=== PATIENT | male | born 1930 | race African-American/Black ===

== ENCOUNTER 2017-08-15 08:21 | Emergency (ER) | payer MEDICARE, BC, OTHER ==
[~2017-08-15] VITALS: Ht 177.8 cm; Wt 90.0 kg
[~2017-08-15 08:21] MED LIST: CETI10TA6 PO; DOCU-138 PO; HYDR-1348 PO; HYDR-3927 PO; OMEP20CA10 PO; OXYB5TAB11 PO; TAMS0.4C31 PO; TRAM50TA3 PO; [UNRECOGNIZED DRUG - CODE] PO
[2017-08-15] MEDS ORDERED: ONDANSETRON HCL 4MG/2ML VIAL IV STA (08:45)
[2017-08-15] MEDS ORDERED: MORPHINE SULFATE 4 MG/ML CPJ (NOT FOR IM USE) IV STA (08:45)
[2017-08-15 09:07] LABS: BASOPHILS % 0.9 % (0.0-2.0); EOSINOPHILS % 3.9 % (0.0-5.0); HEMOGLOBIN. 12.6 g/dL (14.0-18.0); LYMPHOCYTES % 28.9 % (20.0-50.0); MEAN CORPUSCULAR HEMOGLOBIN 33.8 pg (28.0-32.0); MEAN CORPUSCULAR VOLUME 99.8 fL (80.0-94.0); MEAN PLATELET VOLUME 7.1 fl (7.4-10.4); MONOCYTES % 14.4 % (2.0-8.0); NEUTROPHILS % 51.9 % (40.0-76.0); PLATELET 138 x1000/uL (130-400); RED BLOOD CELL COUNT 3.71 mill/uL (4.7-6.1); RED CELL DISTRIBUTION WIDTH 14.7 % (11.6-14.6)
[2017-08-15 09:11] LABS: CHLORIDE 108 mEq/L (98-107)
[2017-08-15 09:13] LABS: INR 1.1; PROTHROMBIN TIME 11.4 sec (9.4-11.6)
[2017-08-15] MEDS ORDERED: IOHEXOL-300 100 ML BOTTLE ONE (10:18)
[2017-08-15] MEDS ORDERED: TRAMADOL 50MG TABLET PO ONE (10:30)
[2017-08-15 10:47] VITALS: BP 126/80
== END 2017-08-15 10:53 | disposition home or self-care (01) ==
LOC: ER 08:44
DX: S22.31XA Fracture of one rib, right side, initial encounter for closed fracture (principal); D72.819 Decreased white blood cell count, unspecified; R05 Cough; I48.91 Unspecified atrial fibrillation; I10 Essential (primary) hypertension; Z86.718 Personal history of other venous thrombosis and embolism; Z96.659 Presence of unspecified artificial knee joint; Z95.0 Presence of cardiac pacemaker; Z88.8 Allergy status to other drugs, medicaments and biological substances; W01.0XXA Fall on same level from slipping, tripping and stumbling without subsequent striking against object, initial encounter; Y93.89 Activity, other specified; Y92.89 Other specified places as the place of occurrence of the external cause; Y99.8 Other external cause status
CPT/HCPCS: 36415; 71260; 74177; 80053; 85025; 85610; 96374; 96375; 99285; J2270; J2405; Q9967

== ENCOUNTER 2018-08-25 19:15 | Inpatient (IN) | payer BC, OTHER ==
[~2018-08-25] VITALS: Ht 182.9 cm; Wt 99.8 kg
[2018-08-25 20:17] LABS: BASOPHILS % 1.2 % (0.0-2.0); EOSINOPHILS % 3.4 % (0.0-5.0); HEMATOCRIT. 43.2 % (42.0-52.0); HEMOGLOBIN. 14.3 g/dL (14.0-18.0); LYMPHOCYTES % 34.7 % (20.0-50.0); MEAN CORPUSCULAR VOLUME 102.4 fL (80.0-94.0); MEAN PLATELET VOLUME 7.8 fl (7.4-10.4); MONOCYTES % 9.7 % (2.0-8.0); PLATELET 194 x1000/uL (130-400); RED BLOOD CELL COUNT 4.22 mill/uL (4.7-6.1); RED CELL DISTRIBUTION WIDTH 14.9 % (11.6-14.6)
[2018-08-25 20:21] LABS: INR 1.1; PARTIAL THROMBOPLASTIN TIME 28.2 sec (23.4-31.0); PROTHROMBIN TIME 11.4 sec (9.6-11.0)
[2018-08-25 20:23] LABS: CHLORIDE 109 mEq/L (98-107)
[2018-08-25] MEDS ORDERED: ACETAMINOPHEN 325MG TABLET PO PRN (22:00)
[2018-08-25] MEDS ORDERED: IPRATROPIUM/ALBUTEROL 0.5-3(2.5)MG/3ML NEB INH PRN (22:00)
[2018-08-25] MEDS ORDERED: ONDANSETRON HCL 4MG/2ML INJ IV PRN (22:00)
[2018-08-25] MEDS ORDERED: GUAIFENESIN 200MG/10ML SUGAR FREE UDC PO PRN (22:00)
[2018-08-25] MEDS ORDERED: ZOLPIDEM TARTRATE 5MG TABLET PO PRN (22:00)
[2018-08-25] MEDS ORDERED: MAGNESIUM/ALUMINUM HYDROXIDE/SIMETHICONE 30ML UDC PO PRN (22:00)
[2018-08-25] MEDS ORDERED: CLONIDINE 0.1MG TABLET PO PRN (22:00)
[2018-08-25] MEDS ORDERED: DOCUSATE SODIUM 100MG CAPSULE PO PRN (22:00)
[2018-08-25] MEDS ORDERED: NITROGLYCERIN 0.4MG TABLET SL SL PRN (22:00)
[2018-08-25 22:30] LABS: T4 FREE 1.38 ng/dL (0.76-1.46)
[2018-08-25 22:35] LABS: CLARITY URINE CLEAR (CLEAR); COLOR URINE YELLOW (YELLOW); KETONES URINE NEGATIVE (NEGATIVE); LEUKOCYTE ESTERASE URINE NEGATIVE (NEGATIVE); NITRITE URINE NEGATIVE (NEGATIVE); OCCULT BLOOD URINE NEGATIVE (NEGATIVE); PROTEIN URINE NEGATIVE (NEGATIVE); SPECIFIC GRAVITY URINE 1.013 (1.005-1.030)
[2018-08-25 22:42] LABS: FOLIC ACID (FOLATE) SERUM >20 ng/mL ng/mL (>5.38)
[2018-08-25 22:53] LABS: VITAMIN B12 SERUM >2000 pg/mL pg/mL (211-911)
[2018-08-25 22:53] LABS: *AMPHETAMINES SCREEN URINE NEGATIVE (NEGATIVE); *BARBITURATES SCREEN URINE NEGATIVE (NEGATIVE); *BENZODIAZEPINES SCREEN URINE NEGATIVE (NEGATIVE); *COCAINE SCREEN URINE NEGATIVE (NEGATIVE); CANNABINOID URINE SCREEN NEGATIVE (NEGATIVE); OPIATES URINE SCREEN NEGATIVE (NEGATIVE)
[2018-08-25 22:54] LABS: METHADONE URINE SCREEN NEGATIVE (NEGATIVE)
[2018-08-25 23:00] LABS: PHENCYCLIDINE URINE SCREEN NEGATIVE (NEGATIVE)
[2018-08-26] VITALS (7 sets, daily range): BP systolic 98–129; BP diastolic 56–79
[2018-08-26] MEDS: TRAMADOL 50MG TABLET PO PRN ×2 (01:20→20:00)
[2018-08-26] MEDS ORDERED: AMLO10TA80 MT (02:03)
[2018-08-26] MEDS ORDERED: DONE5TAB33 MT (02:03)
[2018-08-26] MEDS ORDERED: APIX5TAB MT (02:03)
[2018-08-26] MEDS ORDERED: METO-385 MT (02:03)
[2018-08-26] MEDS ORDERED: MELA3TAB71 MT (02:03)
[2018-08-26] MEDS ORDERED: ATOR10TA69 MT (02:03)
[2018-08-26] MEDS ORDERED: QUET25TA34 MT (02:03)
[2018-08-26] MEDS ORDERED: MEXI200C MT (02:03)
[2018-08-26] MEDS ORDERED: ESCI5TAB10 MT (02:03)
[2018-08-26] MEDS ORDERED: ALFU10TA9 MT (02:03)
[2018-08-26 07:06] LABS: CREATINE KINASE 82 IU/L (39-308)
[2018-08-26 07:12] LABS: CREATINE KINASE MB FRACTION 1.7 ng/mL (0.5-3.6)
[2018-08-26 08:51] LABS: T4 FREE 1.33 ng/dL (0.76-1.46)
[2018-08-26] MEDS ORDERED: ASPIRIN 325MG EC TABLET PO SCH (09:00)
[2018-08-26] MEDS: ENOXAPARIN 40MG/0.4ML SYR SUBCUT SCH (10:01)
[2018-08-26] MEDS: FAMOTIDINE 20MG TABLET PO SCH (10:02)
[2018-08-26] MEDS: CLOPIDOGREL 75MG TABLET PO SCH (10:02)
[2018-08-26] MEDS: TAMSULOSIN HCL 0.4MG SR CAPSULE PO SCH (10:03)
[2018-08-27] VITALS: BP 133/93
[2018-08-27 04:00] VITALS: BP 138/79
[2018-08-27 08:00] VITALS: BP 133/86
[2018-08-27] MEDS: THIAMINE HCL 100MG TABLET PO SCH (08:46)
[2018-08-27] MEDS: FAMOTIDINE 20MG TABLET PO SCH (08:46)
[2018-08-27] MEDS: FOLIC ACID 1MG TABLET PO SCH (08:46)
[2018-08-27] MEDS: TAMSULOSIN HCL 0.4MG SR CAPSULE PO SCH (08:46)
[2018-08-27] MEDS: CLOPIDOGREL 75MG TABLET PO SCH (08:46)
[2018-08-27] MEDS: ENOXAPARIN 40MG/0.4ML SYR SUBCUT SCH (08:47)
[2018-08-27 12:00] VITALS: BP 128/70
[2018-08-27] MEDS: LOSARTAN POTASSIUM 25 MG TABLET PO SCH (12:40)
[2018-08-27 16:00] VITALS: BP 110/74
[2018-08-27 20:00] VITALS: BP 125/77
[2018-08-28] VITALS: BP 118/80
[2018-08-28 04:00] VITALS: BP 124/72
[2018-08-28] MEDS ORDERED: APIXABAN 5 MG TABLET PO SCH (07:30)
[2018-08-28 08:00] VITALS: BP 130/91
[2018-08-28] MEDS: THIAMINE HCL 100MG TABLET PO SCH (08:43)
[2018-08-28] MEDS: FOLIC ACID 1MG TABLET PO SCH (08:43)
[2018-08-28] MEDS: LOSARTAN POTASSIUM 25 MG TABLET PO SCH (08:43)
[2018-08-28] MEDS: TAMSULOSIN HCL 0.4MG SR CAPSULE PO SCH (08:43)
[2018-08-28] MEDS: FAMOTIDINE 20MG TABLET PO SCH (08:44)
[2018-08-28 12:00] VITALS: BP 115/73
[2018-08-28 13:48] VITALS: BP 115/73
[2018-08-28 16:00] VITALS: BP 121/68
== END 2018-08-28 16:55 | disposition home health service (06) | DRG 64 ==
LOC: ER 19:15 → 5WST 21:38 → EDBEDREQTM 21:40 → EDBEDREQ 21:40 → SUPCPDRO 21:51 → ENRESERV 22:26
PROVIDERS: ADMIT Internal Medicine; ATTEND Internal Medicine
DX: I63.9 Cerebral infarction, unspecified (principal); N17.0 Acute kidney failure with tubular necrosis; E46 Unspecified protein-calorie malnutrition; G81.94 Hemiplegia, unspecified affecting left nondominant side; I42.9 Cardiomyopathy, unspecified; L89.159 Pressure ulcer of sacral region, unspecified stage; R47.01 Aphasia; I10 Essential (primary) hypertension; I48.0 Paroxysmal atrial fibrillation; Z96.659 Presence of unspecified artificial knee joint; N40.0 Benign prostatic hyperplasia without lower urinary tract symptoms; R47.1 Dysarthria and anarthria; Z88.6 Allergy status to analgesic agent; Z79.899 Other long term (current) drug therapy; Z88.8 Allergy status to other drugs, medicaments and biological substances; Z95.0 Presence of cardiac pacemaker; Z82.49 Family history of ischemic heart disease and other diseases of the circulatory system; Z82.3 Family history of stroke; Z68.29 Body mass index [BMI] 29.0-29.9, adult; Z86.718 Personal history of other venous thrombosis and embolism
CPT/HCPCS: 36415; 71045; 76770; 80061; 80305; 82550; 82553; 82607; 82746; 83036; 83540; 83550; 83880; 84134; 84439; 84443; 84481; 84484; 92523; 92610; 93005; 93306; 93880; 93970; 97116; 97163; 97166; 99285; J1650

== ENCOUNTER 2018-09-15 22:19 | Inpatient (IN) | payer BC, OTHER ==
[~2018-09-15] VITALS: Ht 175.3 cm; Wt 101.6 kg
[~2018-09-15 22:19] MED LIST changes: +ALFU10TA9 MT; +AMLO10TA80 MT; +APIX5TAB MT; +ATOR10TA69 MT; -CETI10TA6 PO; -DOCU-138 PO; +DONE5TAB33 MT; +ESCI5TAB10 MT; -HYDR-1348 PO; -HYDR-3927 PO; +MELA3TAB71 MT; +METO-385 MT; +MEXI200C MT; -OMEP20CA10 PO; -OXYB5TAB11 PO; +QUET25TA34 MT; -TAMS0.4C31 PO; -TRAM50TA3 PO; -[UNRECOGNIZED DRUG - CODE] PO
[2018-09-15 22:55] LABS: EOSINOPHILS % 4.3 % (0.0-5.0); HEMATOCRIT. 37.3 % (42.0-52.0); LYMPHOCYTES % 26.5 % (20.0-50.0); MEAN CORPUSCULAR HEMOGLOBIN 35.9 pg (28.0-32.0); MEAN CORPUSCULAR VOLUME 102.7 fL (80.0-94.0); MEAN PLATELET VOLUME 8.6 fl (7.4-10.4); MONOCYTES % 14.3 % (2.0-8.0); NEUTROPHILS % 53.9 % (40.0-76.0); PLATELET 132 x1000/uL (130-400); RED BLOOD CELL COUNT 3.63 mill/uL (4.7-6.1); RED CELL DISTRIBUTION WIDTH 14.9 % (11.6-14.6)
[2018-09-15] MEDS ORDERED: AMIODARONE HCL 50MG/ML 3ML VIAL IV ONE (22:55)
[2018-09-15 22:59] LABS: CHLORIDE 111 mEq/L (98-107)
[2018-09-15] MEDS ORDERED: AMIODARONE HCL 150 MG in DEXT 5% WATER 100 ML IV ONE (23:00)
[2018-09-15] MEDS ORDERED: AMIODARONE HCL 900 MG in DEXT 5% WATER 500 ML IV ONE (23:00)
[2018-09-15] MEDS ORDERED: MAGNESIUM 4 G PREMIX 100 ML IV ONE (23:45)
[2018-09-15] MEDS ORDERED: MIDAZOLAM HCL 2 MG/2 ML VIAL IV ONE (23:45)
[2018-09-16] VITALS (46 sets, daily range): BP systolic 88–158; BP diastolic 47–96
[2018-09-16 00:01] LABS: PROTHROMBIN TIME 10.7 sec (9.6-11.0)
[2018-09-16] MEDS ORDERED: HYDRALAZINE 20MG/ML VIAL IV PRN (03:45)
[2018-09-16 05:36] LABS: BASOPHILS % 0.8 % (0.0-2.0); EOSINOPHILS % 3.4 % (0.0-5.0); HEMATOCRIT. 37.4 % (42.0-52.0); HEMOGLOBIN. 12.6 g/dL (14.0-18.0); LYMPHOCYTES % 23.6 % (20.0-50.0); MEAN CORPUSCULAR HEMOGLOBIN 34.5 pg (28.0-32.0); MEAN CORPUSCULAR VOLUME 102.8 fL (80.0-94.0); MEAN PLATELET VOLUME 7.8 fl (7.4-10.4); MONOCYTES % 14.8 % (2.0-8.0); NEUTROPHILS % 57.4 % (40.0-76.0); PLATELET 110 x1000/uL (130-400); RED BLOOD CELL COUNT 3.64 mill/uL (4.7-6.1); RED CELL DISTRIBUTION WIDTH 14.7 % (11.6-14.6)
[2018-09-16 05:56] LABS: CHLORIDE 111 mEq/L (98-107)
[2018-09-16] MEDS ORDERED: AMIODARONE HCL 900 MG in DEXT 5% WATER 500 ML IV PRN (06:00)
[2018-09-16 06:03] LABS: PHOSPHORUS 3.6 mg/dL (2.5-4.9)
[2018-09-16 06:06] LABS: CREATINE KINASE 109 IU/L (39-308)
[2018-09-16 06:08] LABS: CREATINE KINASE MB FRACTION 7.3 ng/mL (0.5-3.6)
[2018-09-16] MEDS ORDERED: NA PHOS,M-B/NA PHOS,DI-BA ENEMA 118ML PR PRN (07:15)
[2018-09-16] MEDS ORDERED: CLONIDINE 0.1MG TABLET PO PRN (07:15)
[2018-09-16] MEDS ORDERED: GUAIFENESIN 200MG/10ML SUGAR FREE UDC PO PRN (07:15)
[2018-09-16] MEDS ORDERED: ONDANSETRON HCL 4MG/2ML INJ IV PRN (07:15)
[2018-09-16] MEDS ORDERED: ENOXAPARIN 40MG/0.4ML SYR SUBCUT SCH ×2 (07:15→09:00)
[2018-09-16] MEDS ORDERED: HYDROCODONE/ACETAMINOPHEN 5/325MG TABLET PO PRN (07:15)
[2018-09-16] MEDS ORDERED: IPRATROPIUM/ALBUTEROL 0.5-3(2.5)MG/3ML NEB INH PRN (07:15)
[2018-09-16] MEDS ORDERED: MAGNESIUM/ALUMINUM HYDROXIDE/SIMETHICONE 30ML UDC PO PRN (07:15)
[2018-09-16] MEDS ORDERED: DIPHENHYDRAMINE 50MG/ML VIAL IV PRN (07:15)
[2018-09-16] MEDS ORDERED: LORAZEPAM 2MG/ML CPJ IV PRN (07:15)
[2018-09-16] MEDS ORDERED: MORPHINE SULFATE 2 MG/ML CPJ (NOT FOR IM USE) IV PRN (07:15)
[2018-09-16] MEDS: ENOXAPARIN 30MG/0.3ML SYR SUBCUT SCH ×2 (10:31→21:01)
[2018-09-16] MEDS: ASPIRIN 81MG EC TABLET PO SCH (10:31)
[2018-09-16 10:43] LABS: CHLORIDE 110 mEq/L (98-107)
[2018-09-16] MEDS: AMIODARONE HCL 200 MG TABLET PO SCH ×2 (11:49→21:00)
[2018-09-16] MEDS: LIDOCAINE 2G PREMIX 500 ML IV PRN (14:50)
[2018-09-16] MEDS ORDERED: LIDOCAINE HCL 2% 5ML SYRINGE IV SCH (15:00)
[2018-09-16 17:05] LABS: CREATINE KINASE MB FRACTION 4.8 ng/mL (0.5-3.6)
[2018-09-16] MEDS ORDERED: AMIODARONE HCL 900 MG in DEXT 5% WATER 482 ML IV PRN (18:00)
[2018-09-16] MEDS: DOCUSATE SODIUM 100MG CAPSULE PO PRN (21:00)
[2018-09-16] MEDS: CARVEDILOL 3.125 MG TABLET PO SCH (21:01)
[2018-09-17] VITALS (66 sets, daily range): BP systolic 113–172; BP diastolic 31–120
[2018-09-17 04:02] LABS: CREATINE KINASE MB FRACTION 2.5 ng/mL (0.5-3.6)
[2018-09-17 05:57] LABS: BASOPHILS % 0.5 % (0.0-2.0); EOSINOPHILS % 2.3 % (0.0-5.0); HEMOGLOBIN. 12.8 g/dL (14.0-18.0); LYMPHOCYTES % 18.5 % (20.0-50.0); MEAN CORPUSCULAR HEMOGLOBIN 35.3 pg (28.0-32.0); MEAN CORPUSCULAR VOLUME 102.3 fL (80.0-94.0); MEAN PLATELET VOLUME 7.9 fl (7.4-10.4); MONOCYTES % 14.7 % (2.0-8.0); PLATELET 114 x1000/uL (130-400); RED BLOOD CELL COUNT 3.62 mill/uL (4.7-6.1); RED CELL DISTRIBUTION WIDTH 14.8 % (11.6-14.6)
[2018-09-17 06:15] LABS: CHLORIDE 107 mEq/L (98-107)
[2018-09-17 06:30] LABS: LDL CHOLESTEROL 26 mg/dL (5-100)
[2018-09-17 06:32] LABS: HDL CHOLESTEROL 68 mg/dL (40-59); T4 FREE 1.04 ng/dL (0.76-1.46)
[2018-09-17] MEDS: CARVEDILOL 3.125 MG TABLET PO SCH ×2 (09:14→20:40)
[2018-09-17] MEDS: AMIODARONE HCL 200 MG TABLET PO SCH ×2 (09:14→20:40)
[2018-09-17] MEDS: ASPIRIN 81MG EC TABLET PO SCH (09:14)
[2018-09-17] MEDS: ENOXAPARIN 30MG/0.3ML SYR SUBCUT SCH ×2 (09:14→20:41)
[2018-09-17] MEDS ORDERED: MAGNESIUM 1 G PREMIX 100 ML IV SCH (12:00)
[2018-09-17] MEDS: LIDOCAINE 2G PREMIX 500 ML IV PRN (18:08)
[2018-09-17 21:52] LABS: *AMPHETAMINES SCREEN URINE NEGATIVE (NEGATIVE); *BARBITURATES SCREEN URINE NEGATIVE (NEGATIVE); *BENZODIAZEPINES SCREEN URINE NEGATIVE (NEGATIVE); *COCAINE SCREEN URINE NEGATIVE (NEGATIVE)
[2018-09-17 21:53] LABS: CANNABINOID URINE SCREEN NEGATIVE (NEGATIVE); METHADONE URINE SCREEN NEGATIVE (NEGATIVE); OPIATES URINE SCREEN NEGATIVE (NEGATIVE); PHENCYCLIDINE URINE SCREEN NEGATIVE (NEGATIVE)
[2018-09-18] VITALS (46 sets, daily range): BP systolic 100–152; BP diastolic 31–110
[2018-09-18 06:09] LABS: HEMATOCRIT. 39.1 % (42.0-52.0); HEMOGLOBIN. 13.6 g/dL (14.0-18.0); MEAN CORPUSCULAR HEMOGLOBIN 35.7 pg (28.0-32.0); MEAN CORPUSCULAR VOLUME 102.5 fL (80.0-94.0); MEAN PLATELET VOLUME 9.4 fl (7.4-10.4); RED BLOOD CELL COUNT 3.81 mill/uL (4.7-6.1)
[2018-09-18 06:15] LABS: CHLORIDE 106 mEq/L (98-107)
[2018-09-18] MEDS: ASPIRIN 81MG EC TABLET PO SCH (08:45)
[2018-09-18] MEDS: ENOXAPARIN 30MG/0.3ML SYR SUBCUT SCH ×2 (08:45→21:26)
[2018-09-18] MEDS: AMIODARONE HCL 200 MG TABLET PO SCH ×2 (08:45→21:27)
[2018-09-18] MEDS: CARVEDILOL 3.125 MG TABLET PO SCH ×2 (08:46→21:28)
[2018-09-18 10:58] LABS: PLATELET ESTIMATE NORMAL
[2018-09-18 10:59] LABS: PLATELET 110 x1000/uL (130-400)
[2018-09-18] MEDS: LOSARTAN POTASSIUM 25 MG TABLET PO SCH (13:07)
[2018-09-18] MEDS: TRAMADOL 50MG TABLET PO PRN (18:20)
[2018-09-18] MEDS ORDERED: NON FORMULARY PATIENT HOME MED XX SCH ×3 (21:00)
[2018-09-18] MEDS: LATANOPROST 0.005% OPHTH DROPS 2.5ML EACHEYE SCH (21:28)
[2018-09-18] MEDS: ALFUZOSIN HCL 10 MG PO SCH (21:31)
[2018-09-18] MEDS: IPRATROPIUM BROMIDE 0.03% XX SCH (21:32)
[2018-09-19] VITALS (40 sets, daily range): BP systolic 90–139; BP diastolic 45–75
[2018-09-19 04:45] LABS: BASOPHILS % 0.7 % (0.0-2.0); HEMOGLOBIN. 14.2 g/dL (14.0-18.0); LYMPHOCYTES % 14.2 % (20.0-50.0); MEAN CORPUSCULAR HEMOGLOBIN 34.8 pg (28.0-32.0); MEAN CORPUSCULAR VOLUME 102.9 fL (80.0-94.0); MEAN PLATELET VOLUME 7.8 fl (7.4-10.4); MONOCYTES % 14.6 % (2.0-8.0); NEUTROPHILS % 69.5 % (40.0-76.0); PLATELET 121 x1000/uL (130-400); RED BLOOD CELL COUNT 4.08 mill/uL (4.7-6.1); RED CELL DISTRIBUTION WIDTH 14.3 % (11.6-14.6)
[2018-09-19] MEDS: FLUTICASONE PROPIONATE 50MCG/SPRAY BOTTLE BOTHNSTRLS SCH ×2 (09:20→17:23)
[2018-09-19] MEDS: ENOXAPARIN 30MG/0.3ML SYR SUBCUT SCH (09:20)
[2018-09-19] MEDS: LOSARTAN POTASSIUM 25 MG TABLET PO SCH (09:21)
[2018-09-19] MEDS: AMIODARONE HCL 200 MG TABLET PO SCH ×2 (09:21→20:49)
[2018-09-19] MEDS: ASPIRIN 81MG EC TABLET PO SCH (09:21)
[2018-09-19] MEDS: CARVEDILOL 3.125 MG TABLET PO SCH (09:22)
[2018-09-19] MEDS: IPRATROPIUM BROMIDE 0.03% XX SCH ×2 (09:25→17:24)
[2018-09-19] MEDS: TRAMADOL 50MG TABLET PO PRN ×2 (09:25→15:52)
[2018-09-19] MEDS: QUETIAPINE FUMARATE 25MG TABLET PO SCH (14:44)
[2018-09-19] MEDS: MEXILETINE HCL 150MG CAPSULE PO SCH ×2 (14:49→17:23)
[2018-09-19] MEDS: APIXABAN 5 MG TABLET PO SCH (17:21)
[2018-09-19] MEDS: DONEPEZIL HCL 5MG TABLET PO SCH (17:23)
[2018-09-19] MEDS: ATORVASTATIN CALCIUM 10MG TABLET PO SCH (20:48)
[2018-09-19] MEDS: LATANOPROST 0.005% OPHTH DROPS 2.5ML EACHEYE SCH (20:48)
[2018-09-19] MEDS: ALFUZOSIN HCL 10 MG PO SCH (20:49)
[2018-09-19] MEDS: CARVEDILOL 6.25 MG TABLET PO SCH (21:00)
[2018-09-20] VITALS (50 sets, daily range): BP systolic 78–133; BP diastolic 38–68
[2018-09-20 05:27] LABS: HEMATOCRIT. 35.7 % (42.0-52.0); HEMOGLOBIN. 12.2 g/dL (14.0-18.0); MEAN CORPUSCULAR VOLUME 102.6 fL (80.0-94.0); MEAN PLATELET VOLUME 7.9 fl (7.4-10.4); PLATELET 128 x1000/uL (130-400); RED BLOOD CELL COUNT 3.47 mill/uL (4.7-6.1); RED CELL DISTRIBUTION WIDTH 14.5 % (11.6-14.6)
[2018-09-20] MEDS: MEXILETINE HCL 150MG CAPSULE PO SCH (06:33)
[2018-09-20] MEDS: TRAMADOL 50MG TABLET PO PRN ×2 (06:44→13:15)
[2018-09-20] MEDS: FLUTICASONE PROPIONATE 50MCG/SPRAY BOTTLE BOTHNSTRLS SCH ×2 (08:58→17:00)
[2018-09-20] MEDS: IPRATROPIUM BROMIDE 0.03% XX SCH ×2 (08:59→17:00)
[2018-09-20] MEDS: APIXABAN 5 MG TABLET PO SCH (08:59)
[2018-09-20] MEDS: ASPIRIN 81MG EC TABLET PO SCH (08:59)
[2018-09-20] MEDS: AMIODARONE HCL 200 MG TABLET PO SCH ×2 (08:59→21:23)
[2018-09-20] MEDS: LOSARTAN POTASSIUM 25 MG TABLET PO SCH ×2 (08:59→09:00)
[2018-09-20] MEDS: CARVEDILOL 6.25 MG TABLET PO SCH ×2 (09:00→21:23)
[2018-09-20 10:19] LABS: PLATELET ESTIMATE SLIGHTLY DECREASED
[2018-09-20] MEDS: QUETIAPINE FUMARATE 25MG TABLET PO SCH (13:15)
[2018-09-20] MEDS ORDERED: MEXILETINE HCL 200 MG CAPSULE PO SCH (14:00)
[2018-09-20] MEDS: APIXABAN 2.5 MG TABLET PO SCH (18:09)
[2018-09-20] MEDS: DONEPEZIL HCL 5MG TABLET PO SCH (18:10)
[2018-09-20] MEDS: ALFUZOSIN HCL 10 MG PO SCH (21:22)
[2018-09-20] MEDS: LATANOPROST 0.005% OPHTH DROPS 2.5ML EACHEYE SCH (21:22)
[2018-09-20] MEDS: ATORVASTATIN CALCIUM 10MG TABLET PO SCH (21:22)
[2018-09-21] VITALS (47 sets, daily range): BP systolic 85–166; BP diastolic 42–71
[2018-09-21] MEDS: TRAMADOL 50MG TABLET PO PRN (01:31)
[2018-09-21 06:13] LABS: BASOPHILS % 0.6 % (0.0-2.0); EOSINOPHILS % 1.5 % (0.0-5.0); HEMATOCRIT. 35.1 % (42.0-52.0); LYMPHOCYTES % 9.3 % (20.0-50.0); MEAN CORPUSCULAR HEMOGLOBIN 35.2 pg (28.0-32.0); MEAN CORPUSCULAR VOLUME 102.7 fL (80.0-94.0); MONOCYTES % 14.6 % (2.0-8.0); RED BLOOD CELL COUNT 3.42 mill/uL (4.7-6.1); RED CELL DISTRIBUTION WIDTH 14.3 % (11.6-14.6)
[2018-09-21] MEDS: APIXABAN 2.5 MG TABLET PO SCH (09:11)
[2018-09-21] MEDS: AMIODARONE HCL 200 MG TABLET PO SCH ×2 (09:11→21:26)
[2018-09-21] MEDS: LOSARTAN POTASSIUM 25 MG TABLET PO SCH (09:11)
[2018-09-21] MEDS: FLUTICASONE PROPIONATE 50MCG/SPRAY BOTTLE BOTHNSTRLS SCH ×2 (09:11→17:48)
[2018-09-21] MEDS: IPRATROPIUM BROMIDE 0.03% XX SCH ×2 (09:22→17:48)
[2018-09-21] MEDS: ASPIRIN 81MG EC TABLET PO SCH (10:06)
[2018-09-21] MEDS: CARVEDILOL 6.25 MG TABLET PO SCH ×2 (10:07→21:59)
[2018-09-21 11:35] LABS: PLATELET 158 x1000/uL (130-400)
[2018-09-21] MEDS: QUETIAPINE FUMARATE 25MG TABLET PO SCH (14:37)
[2018-09-21] MEDS: DOCUSATE SODIUM 100MG CAPSULE PO PRN (17:48)
[2018-09-21] MEDS: DONEPEZIL HCL 5MG TABLET PO SCH (17:48)
[2018-09-21] MEDS: APIXABAN 5 MG TABLET PO SCH (17:48)
[2018-09-21] MEDS: ALFUZOSIN HCL 10 MG PO SCH (21:26)
[2018-09-21] MEDS: LATANOPROST 0.005% OPHTH DROPS 2.5ML EACHEYE SCH (21:26)
[2018-09-21] MEDS: ATORVASTATIN CALCIUM 10MG TABLET PO SCH (21:26)
[2018-09-22] VITALS (36 sets, daily range): BP systolic 70–198; BP diastolic 37–106
[2018-09-22 05:56] LABS: HEMATOCRIT 34.2 % (42.0-52.0); HEMOGLOBIN 12.1 g/dL (14.0-18.0); MEAN CORPUSCULAR HEMOGLOBIN 35.7 pg (28.0-32.0); MEAN CORPUSCULAR VOLUME 101.6 fL (80.0-94.0); PLATELET 159 x1000/uL (130-400); RED BLOOD CELL COUNT 3.37 mill/uL (4.7-6.1); RED CELL DISTRIBUTION WIDTH 14.1 % (11.6-14.6)
[2018-09-22] MEDS: FLUTICASONE PROPIONATE 50MCG/SPRAY BOTTLE BOTHNSTRLS SCH (08:50)
[2018-09-22] MEDS: LOSARTAN POTASSIUM 25 MG TABLET PO SCH (08:50)
[2018-09-22] MEDS: ASPIRIN 81MG EC TABLET PO SCH (08:50)
[2018-09-22] MEDS: APIXABAN 5 MG TABLET PO SCH ×3 (08:50→17:47)
[2018-09-22] MEDS: AMIODARONE HCL 200 MG TABLET PO SCH ×2 (08:50→21:24)
[2018-09-22] MEDS: CARVEDILOL 6.25 MG TABLET PO SCH ×2 (08:51→21:23)
[2018-09-22] MEDS: IPRATROPIUM BROMIDE 0.03% XX SCH ×3 (08:51→17:47)
[2018-09-22] MEDS: QUETIAPINE FUMARATE 25MG TABLET PO SCH (13:46)
[2018-09-22] MEDS: DONEPEZIL HCL 5MG TABLET PO SCH ×2 (17:46→17:54)
[2018-09-22] MEDS: LATANOPROST 0.005% OPHTH DROPS 2.5ML EACHEYE SCH (21:22)
[2018-09-22] MEDS: ATORVASTATIN CALCIUM 10MG TABLET PO SCH (21:22)
[2018-09-22] MEDS: ALFUZOSIN HCL 10 MG PO SCH (21:24)
[2018-09-23] VITALS (12 sets, daily range): BP systolic 109–132; BP diastolic 50–73
[2018-09-23 07:12] LABS: BASOPHILS % 0.8 % (0.0-2.0); EOSINOPHILS % 2.6 % (0.0-5.0); HEMATOCRIT. 33.3 % (42.0-52.0); HEMOGLOBIN. 11.3 g/dL (14.0-18.0); LYMPHOCYTES % 11.1 % (20.0-50.0); MEAN CORPUSCULAR HEMOGLOBIN 34.5 pg (28.0-32.0); MEAN CORPUSCULAR VOLUME 101.8 fL (80.0-94.0); MEAN PLATELET VOLUME 7.5 fl (7.4-10.4); MONOCYTES % 14.9 % (2.0-8.0); NEUTROPHILS % 70.6 % (40.0-76.0); PLATELET 195 x1000/uL (130-400); RED BLOOD CELL COUNT 3.28 mill/uL (4.7-6.1); RED CELL DISTRIBUTION WIDTH 13.9 % (11.6-14.6)
[2018-09-23] MEDS: ASPIRIN 81MG EC TABLET PO SCH (08:40)
[2018-09-23] MEDS: APIXABAN 5 MG TABLET PO SCH ×2 (08:40→17:05)
[2018-09-23] MEDS: AMIODARONE HCL 200 MG TABLET PO SCH ×2 (08:40→21:25)
[2018-09-23] MEDS: CARVEDILOL 6.25 MG TABLET PO SCH ×2 (08:41→21:25)
[2018-09-23] MEDS: IPRATROPIUM BROMIDE 0.03% XX SCH ×2 (08:42→17:06)
[2018-09-23] MEDS: LOSARTAN POTASSIUM 25 MG TABLET PO SCH (09:00)
[2018-09-23] MEDS: QUETIAPINE FUMARATE 25MG TABLET PO SCH (14:48)
[2018-09-23] MEDS: DONEPEZIL HCL 5MG TABLET PO SCH (17:05)
[2018-09-23] MEDS: ALFUZOSIN HCL 10 MG PO SCH (21:24)
[2018-09-23] MEDS: ATORVASTATIN CALCIUM 10MG TABLET PO SCH (21:25)
[2018-09-23] MEDS: LATANOPROST 0.005% OPHTH DROPS 2.5ML EACHEYE SCH (21:26)
[2018-09-24] VITALS (16 sets, daily range): BP systolic 108–142; BP diastolic 50–81
[2018-09-24] MEDS: APIXABAN 5 MG TABLET PO SCH (08:44)
[2018-09-24] MEDS: ASPIRIN 81MG EC TABLET PO SCH (08:44)
[2018-09-24] MEDS: LOSARTAN POTASSIUM 25 MG TABLET PO SCH (08:44)
[2018-09-24] MEDS: CARVEDILOL 6.25 MG TABLET PO SCH ×2 (08:45→22:15)
[2018-09-24] MEDS: AMIODARONE HCL 200 MG TABLET PO SCH ×2 (08:45→22:14)
[2018-09-24] MEDS: IPRATROPIUM BROMIDE 0.03% XX SCH ×2 (13:57→18:53)
[2018-09-24] MEDS: QUETIAPINE FUMARATE 25MG TABLET PO SCH (13:58)
[2018-09-24] MEDS: DONEPEZIL HCL 5MG TABLET PO SCH (18:53)
[2018-09-24] MEDS: APIXABAN 2.5 MG TABLET PO SCH (18:53)
[2018-09-24] MEDS: ALFUZOSIN HCL 10 MG PO SCH (22:15)
[2018-09-24] MEDS: ATORVASTATIN CALCIUM 10MG TABLET PO SCH (22:15)
[2018-09-24] MEDS: LATANOPROST 0.005% OPHTH DROPS 2.5ML EACHEYE SCH (22:17)
[2018-09-25] VITALS (9 sets, daily range): BP systolic 96–139; BP diastolic 55–88
[2018-09-25 07:10] LABS: BASOPHILS % 1.1 % (0.0-2.0); EOSINOPHILS % 3.2 % (0.0-5.0); HEMATOCRIT. 33.8 % (42.0-52.0); HEMOGLOBIN. 11.6 g/dL (14.0-18.0); LYMPHOCYTES % 13.5 % (20.0-50.0); MEAN CORPUSCULAR HEMOGLOBIN 34.6 pg (28.0-32.0); MEAN CORPUSCULAR VOLUME 101.2 fL (80.0-94.0); MEAN PLATELET VOLUME 7.2 fl (7.4-10.4); MONOCYTES % 12.3 % (2.0-8.0); NEUTROPHILS % 69.9 % (40.0-76.0); PLATELET 246 x1000/uL (130-400); RED BLOOD CELL COUNT 3.34 mill/uL (4.7-6.1)
[2018-09-25] MEDS: LOSARTAN POTASSIUM 25 MG TABLET PO SCH (08:07)
[2018-09-25] MEDS: AMIODARONE HCL 200 MG TABLET PO SCH ×2 (08:07→21:00)
[2018-09-25] MEDS: APIXABAN 2.5 MG TABLET PO SCH ×2 (08:08→17:43)
[2018-09-25] MEDS: ASPIRIN 81MG EC TABLET PO SCH (08:08)
[2018-09-25] MEDS: CARVEDILOL 6.25 MG TABLET PO SCH ×2 (08:09→21:01)
[2018-09-25] MEDS: IPRATROPIUM BROMIDE 0.03% XX SCH ×2 (09:00→17:00)
[2018-09-25] MEDS: QUETIAPINE FUMARATE 25MG TABLET PO SCH (12:39)
[2018-09-25] MEDS: DONEPEZIL HCL 5MG TABLET PO SCH (17:44)
[2018-09-25] MEDS: ATORVASTATIN CALCIUM 10MG TABLET PO SCH (21:00)
[2018-09-25] MEDS: LATANOPROST 0.005% OPHTH DROPS 2.5ML EACHEYE SCH (21:00)
[2018-09-25] MEDS: ALFUZOSIN HCL 10 MG PO SCH (21:51)
[2018-09-26] VITALS: BP 100/59
[2018-09-26 04:00] VITALS: BP 110/62
[2018-09-26 07:22] LABS: CHLORIDE 109 mEq/L (98-107)
[2018-09-26 07:25] LABS: BASOPHILS % 1.1 % (0.0-2.0); EOSINOPHILS % 3.3 % (0.0-5.0); HEMATOCRIT. 34.5 % (42.0-52.0); HEMOGLOBIN. 11.6 g/dL (14.0-18.0); LYMPHOCYTES % 19.1 % (20.0-50.0); MEAN CORPUSCULAR HEMOGLOBIN 34.2 pg (28.0-32.0); MEAN CORPUSCULAR VOLUME 101.7 fL (80.0-94.0); MEAN PLATELET VOLUME 7.4 fl (7.4-10.4); MONOCYTES % 10.6 % (2.0-8.0); NEUTROPHILS % 65.9 % (40.0-76.0); PLATELET 292 x1000/uL (130-400); RED BLOOD CELL COUNT 3.39 mill/uL (4.7-6.1); RED CELL DISTRIBUTION WIDTH 14.1 % (11.6-14.6)
[2018-09-26 08:00] VITALS: BP 133/66
[2018-09-26] MEDS: IPRATROPIUM BROMIDE 0.03% XX SCH (09:00)
[2018-09-26] MEDS: ASPIRIN 81MG EC TABLET PO SCH (09:05)
[2018-09-26] MEDS: CARVEDILOL 6.25 MG TABLET PO SCH (09:06)
[2018-09-26] MEDS: APIXABAN 2.5 MG TABLET PO SCH (09:06)
[2018-09-26] MEDS: DOCUSATE SODIUM 100MG CAPSULE PO PRN (09:06)
[2018-09-26] MEDS: LOSARTAN POTASSIUM 25 MG TABLET PO SCH (09:14)
[2018-09-26] MEDS: AMIODARONE HCL 200 MG TABLET PO SCH (09:15)
[2018-09-26] MEDS ORDERED: TRAMADOL 50MG TABLET PO PRN (10:00)
[2018-09-26 10:07] VITALS: BP 133/66
[2018-09-26 12:00] VITALS: BP 121/70
[2018-09-26] MEDS: QUETIAPINE FUMARATE 25MG TABLET PO SCH (15:15)
== END 2018-09-26 16:57 | disposition home health service (06) | DRG 280 ==
LOC: ER 22:19 → EDBEDREQSVC 22:59 → EDBEDREQTM 22:59 → CVICU 09-16 00:19 → EDBEDREQTM 09-16 00:21 → EDBEDREQ 09-16 00:21 → ENRESERV 09-16 01:43 → 3WST 09-22 16:10 → 7WST 09-25 23:38
PROVIDERS: ADMIT Internal Medicine; ATTEND Internal Medicine
DX: I21.4 Non-ST elevation (NSTEMI) myocardial infarction (principal); I50.23 Acute on chronic systolic (congestive) heart failure; I47.1 Supraventricular tachycardia; G90.8 Other disorders of autonomic nervous system; I11.0 Hypertensive heart disease with heart failure; I25.5 Ischemic cardiomyopathy; F03.90 Unspecified dementia, unspecified severity, without behavioral disturbance, psychotic disturbance, mood disturbance, and anxiety; I08.1 Rheumatic disorders of both mitral and tricuspid valves; I25.10 Atherosclerotic heart disease of native coronary artery without angina pectoris; I27.20 Pulmonary hypertension, unspecified; I44.1 Atrioventricular block, second degree; I48.91 Unspecified atrial fibrillation; I50.9 Heart failure, unspecified; I73.9 Peripheral vascular disease, unspecified; Z79.01 Long term (current) use of anticoagulants; Z91.81 History of falling; Z95.810 Presence of automatic (implantable) cardiac defibrillator; Z88.1 Allergy status to other antibiotic agents; Z88.5 Allergy status to narcotic agent; Z79.899 Other long term (current) drug therapy
CPT/HCPCS: 36415; 71045; 80048; 80061; 80305; 82550; 82553; 83036; 83735; 83880; 84100; 84439; 84443; 84484; 85027; 85379; 93005; 93306; 93923; 93970; 97110; 97116; 97163; 97166; 97530; 97535; 99285; A6261; J0282; J1650; J2001; J2250; J3475; J3490; J7050; J7060

== ENCOUNTER 2019-02-08 20:56 | Inpatient (IN) | payer BC, OTHER ==
[~2019-02-08] VITALS: Ht 182.9 cm; Wt 104.3 kg
[~2019-02-08 20:56] MED LIST changes: -APIX5TAB MT; -ESCI5TAB10 MT; +ESCI5TAB12 MT
[2019-02-08] MEDS ORDERED: SODIUM CHLORIDE 0.9% 1,000 ML IV ONE (21:32)
[2019-02-08] MEDS ORDERED: PIPERACILLIN/TAZ 3.375G PREMIX 50 ML IV ONE (21:45)
[2019-02-08] MEDS ORDERED: VANCOMYCIN 1 G PREMIX 200 ML IV ONE (21:45)
[2019-02-08] MEDS ORDERED: HYDROCORTISONE SOD SUCCINATE 100 MG/2 ML VIAL IV ONE (21:45)
[2019-02-08 22:15] LABS: BASOPHILS % 0.8 % (0.0-2.0); EOSINOPHILS % 1.5 % (0.0-5.0); HEMATOCRIT. 33.3 % (42.0-52.0); HEMOGLOBIN. 11.2 g/dL (14.0-18.0); LYMPHOCYTES % 24.1 % (20.0-50.0); MEAN CORPUSCULAR HEMOGLOBIN 33.9 pg (28.0-32.0); MEAN CORPUSCULAR VOLUME 100.9 fL (80.0-94.0); MEAN PLATELET VOLUME 7.2 fl (7.4-10.4); MONOCYTES % 9.7 % (2.0-8.0); NEUTROPHILS % 63.9 % (40.0-76.0); PLATELET 217 x1000/uL (130-400); RED CELL DISTRIBUTION WIDTH 14.9 % (11.6-14.6)
[2019-02-08 22:21] LABS: CHLORIDE 112 mEq/L (98-107)
[2019-02-08 22:23] LABS: INR 1.1; PROTHROMBIN TIME 11.6 sec (9.6-11.0)
[2019-02-08 22:29] LABS: CREATINE KINASE 47 IU/L (39-308)
[2019-02-08 22:32] LABS: CREATINE KINASE MB FRACTION 1.3 ng/mL (0.5-3.6)
[2019-02-08 22:51] LABS: CLARITY URINE CLEAR (CLEAR); COLOR URINE YELLOW (YELLOW); KETONES URINE NEGATIVE (NEGATIVE); LEUKOCYTE ESTERASE URINE TRACE (NEGATIVE); NITRITE URINE NEGATIVE (NEGATIVE); OCCULT BLOOD URINE NEGATIVE (NEGATIVE); PH URINE 6.5 (4.5-8.0); PROTEIN URINE NEGATIVE (NEGATIVE); SPECIFIC GRAVITY URINE 1.013 (1.005-1.030); UROBILINOGEN URINE 0.2 E.U./dL (0.2-1.0)
[2019-02-09 08:00] VITALS: BP 109/87
[2019-02-09 09:18] VITALS: BP 118/67
[2019-02-09] MEDS ORDERED: ACETAMINOPHEN 325MG TABLET PO PRN (09:30)
[2019-02-09] MEDS ORDERED: ONDANSETRON HCL 4MG/2ML INJ IV PRN (09:30)
[2019-02-09] MEDS ORDERED: CEFTRIAXONE 1 G PREMIX 50 ML IV SCH (11:00)
[2019-02-09] MEDS: ENOXAPARIN 30MG/0.3ML SYR SUBCUT SCH (11:20)
[2019-02-09 12:00] VITALS: BP 103/62
[2019-02-09 17:27] VITALS: BP 120/72
[2019-02-09] MEDS: RISPERIDONE 1MG TABLET PO SCH (19:32)
[2019-02-09 20:00] VITALS: BP 124/88
[2019-02-09] MEDS ORDERED: LOPERAMIDE HCL 2MG CAPSULE PO PRN (20:58)
[2019-02-10] VITALS: BP 104/56
[2019-02-10 04:00] VITALS: BP 111/64
[2019-02-10 06:44] LABS: BASOPHILS % 1.2 % (0.0-2.0); EOSINOPHILS % 2.4 % (0.0-5.0); HEMATOCRIT. 35.2 % (42.0-52.0); HEMOGLOBIN. 11.6 g/dL (14.0-18.0); LYMPHOCYTES % 31.2 % (20.0-50.0); MEAN CORPUSCULAR HEMOGLOBIN 33.5 pg (28.0-32.0); MEAN CORPUSCULAR VOLUME 101.4 fL (80.0-94.0); MEAN PLATELET VOLUME 7.5 fl (7.4-10.4); MONOCYTES % 10.9 % (2.0-8.0); NEUTROPHILS % 54.3 % (40.0-76.0); PLATELET 239 x1000/uL (130-400); RED BLOOD CELL COUNT 3.47 mill/uL (4.7-6.1); RED CELL DISTRIBUTION WIDTH 14.6 % (11.6-14.6)
[2019-02-10 08:00] VITALS: BP 127/69
[2019-02-10] MEDS: RISPERIDONE 1MG TABLET PO SCH (09:07)
[2019-02-10] MEDS: ENOXAPARIN 30MG/0.3ML SYR SUBCUT SCH (09:08)
[2019-02-10 12:00] VITALS: BP 119/75
[2019-02-10 16:00] VITALS: BP 110/62
[2019-02-10 20:00] VITALS: BP_SYST 126; BP_SYST 127; BP_DIAS 70; BP_DIAS 76; BP_DIAS 90
[2019-02-11] VITALS: BP 130/87
[2019-02-11 04:00] VITALS: BP 126/79
[2019-02-11 08:00] VITALS: BP 120/80
[2019-02-11] MEDS: ENOXAPARIN 30MG/0.3ML SYR SUBCUT SCH (08:29)
[2019-02-11] MEDS: RISPERIDONE 1MG TABLET PO SCH (08:29)
[2019-02-11 12:07] VITALS: BP 122/80
[2019-02-11] MEDS ORDERED: METOPROLOL TARTRATE 50MG TABLET PO NR (13:00)
[2019-02-11 15:28] VITALS: BP 122/80
== END 2019-02-11 14:03 | disposition home health service (06) | DRG 682 ==
LOC: ER 20:56 → 7WST 02-09 01:43 → EDBEDREQSVC 02-09 01:47 → EDBEDREQTM 02-09 01:47 → EDBEDREQ 02-09 01:47 → ENRESERV 02-09 07:19
PROVIDERS: ADMIT Internal Medicine; ATTEND Internal Medicine
DX: N17.9 Acute kidney failure, unspecified (principal); E43 Unspecified severe protein-calorie malnutrition; I50.22 Chronic systolic (congestive) heart failure; I13.0 Hypertensive heart and chronic kidney disease with heart failure and stage 1 through stage 4 chronic kidney disease, or unspecified chronic kidney disease; I42.9 Cardiomyopathy, unspecified; N18.9 Chronic kidney disease, unspecified; D64.9 Anemia, unspecified; E87.8 Other disorders of electrolyte and fluid balance, not elsewhere classified; F03.90 Unspecified dementia, unspecified severity, without behavioral disturbance, psychotic disturbance, mood disturbance, and anxiety; I07.1 Rheumatic tricuspid insufficiency; I11.0 Hypertensive heart disease with heart failure; I27.20 Pulmonary hypertension, unspecified; Z68.31 Body mass index [BMI] 31.0-31.9, adult; Z95.810 Presence of automatic (implantable) cardiac defibrillator; Z88.8 Allergy status to other drugs, medicaments and biological substances; Z79.899 Other long term (current) drug therapy
CPT/HCPCS: 36415; 71045; 80048; 81003; 82550; 82553; 83605; 84145; 84443; 84484; 87077; 87186; 93005; 93306; 97162; 99285; J0696; J1650; J1720; J2543; J3370; J7030; J7040